=== PATIENT | female | born 1975 | race Asian ===

== ENCOUNTER 2017-10-07 09:34 | Day surgery (SDC) | payer OTHER ==
[~2017-10-07] VITALS: Ht 162.6 cm; Wt 65.8 kg
[2017-10-07 10:03] VITALS: BP 139/83
[2017-10-07 10:20] LABS: HEMATOCRIT 28.5 % (36.0-46.0); MCH 23.7 PG (29.0-34.0); MCHC 31.6 G/DL (30.0-36.0); PLATELET COUNT 343 K/uL (156-360); RBC DIS.WIDTH-CV 17.3 % (11.8-14.6); RBC DIS.WIDTH-SD 47.1 % (39-53); WHITE BLOOD COUNT 5.1 K/uL (4.1-10.2)
[2017-10-07] MEDS ORDERED: IBUPROFEN800 MG PO (12:43)
[2017-10-07 13:49] VITALS: BP 145/69
[2017-10-07 14:38] VITALS: BP 137/72
== END 2017-10-07 14:48 | disposition home or self-care (01) ==
LOC: SDC 09:34
PROVIDERS: Obstetrics & Gynecology
DX: N84.0 Polyp of corpus uteri (principal); N93.9 Abnormal uterine and vaginal bleeding, unspecified
CPT/HCPCS: 84702; 85027; 86850; 86900; 86901; 88305; J1100; J2405; J3010